=== PATIENT | male | born 1950 | race Caucasian/White ===

== ENCOUNTER 2016-05-17 14:17 | Emergency (ER) | payer BC, OTHER, SELFPAY ==
[~2016-05-17] VITALS: Ht 182.9 cm; Wt 88.5 kg
[~2016-05-17 14:17] MED LIST: ALLEGRA-D 12 H1 EAC1; ASPIR 8181 MG PO; FLOMAX PO; UNICOMPLEX M TA1 TA1 PO; VITAMIN D3400 UNIT PO; VITAMINC500 PO
[2016-05-17] MEDS ORDERED: PANTOPRAZOLE SO40 M1 PO (14:45)
[2016-05-17] MEDS ORDERED: CLARITIN10 MG PO (14:46)
[2016-05-17 15:04] LABS: ABSOLUTE NEUTROPHILS 6.6 thou/uL (1.4-8.2); BASOPHILS 0.9 % (0.0-2.0); EOSINOPHILS 2.2 % (0.0-3.0); HEMATOCRIT 44.3 % (42.0-52.0); HEMOGLOBIN 15.3 gm/dL (14.0-18.0); LYMPHOCYTES 19.4 % (24.0-44.0); MCH 31.4 pg (26.0-34.0); MCHC 34.5 % (28.0-37.0); MONOCYTES 5.8 % (1.0-8.0); PLATELET COUNT 277 thou/uL (150-400); POLYS 71.7 % (36.0-66.0); RBC 4.87 mil/uL (4.50-6.00); WBC 9.2 thou/uL (4.0-11.0)
[2016-05-17 15:08] LABS: MANUAL DIFF NO
[2016-05-17 15:13] LABS: CALCIUM 9.4 mg/dL (8.5-10.1); CREATININE 0.9 mg/dL (0.6-1.3); POTASSIUM 4.2 mmol/L (3.5-5.1)
[2016-05-17 15:31] LABS: TOTAL BILIRUBIN 0.7 mg/dL (<0.1-1.0)
[2016-05-17 16:02] LABS: URINE BILIRUBIN NEGATIVE (Negative); URINE BLOOD NEGATIVE (Negative); URINE COLOR YELLOW; URINE GLUCOSE-RANDOM* NEGATIVE (Negative); URINE KETONES NEGATIVE (Negative); URINE LEUKOCYTES-REFLEX NEGATIVE (Negative); URINE PROTEIN (DIPSTICK) NEGATIVE (Negative); URINE SPECIFIC GRAVITY 1.015 (1.003-1.035); URINE UROBILINOGEN 0.2 E.U./dl (0.2-1.0)
[2016-05-17] MEDS ORDERED: LIORESAL 10 MG10 MG PO (19:03)
[2016-05-17] MEDS ORDERED: TORADOL 10 MG T10 MG PO (19:03)
[2016-05-17] MEDS ORDERED: PREDNISONE 20 M20 MG PO (19:03)
[2016-05-17] MEDS ORDERED: NORCO 5-325 TA1 EACH PO (19:03)
== END 2016-05-17 22:35 | disposition home or self-care (01) ==
LOC: ER 14:17
PROVIDERS: Emergency Medicine
DX: M51.26 Other intervertebral disc displacement, lumbar region (principal); M54.16 Radiculopathy, lumbar region; K21.9 Gastro-esophageal reflux disease without esophagitis